=== PATIENT | female | born 1955 | race Hispanic/Latino ===

== ENCOUNTER → 2018-09-04 | Outpatient (CLI) | payer OTHER | END | disposition home or self-care (01) | LOC: SHCH 11:29 | PROVIDERS: ATTEND Internal Medicine Cardiovascular Disease | DX: I73.9 Peripheral vascular disease, unspecified (principal) | CPT/HCPCS: 93925 ==

== ENCOUNTER → 2018-09-15 | Outpatient (CLI) | payer OTHER, MEDICARE ==
[~2018-09-15] VITALS: Ht 160 cm; Wt 59.0 kg
[~2018-09-15] MED LIST: REGADENOSON 0.4 MG/5 ML PF SYG IVP SCH
== END | disposition home or self-care (01) ==
LOC: SHCH 07:54
PROVIDERS: ATTEND Internal Medicine Cardiovascular Disease
DX: I67.9 Cerebrovascular disease, unspecified (principal); I10 Essential (primary) hypertension; R07.9 Chest pain, unspecified
CPT/HCPCS: 78452; 93017; 96374; A9500 ×2; J2785

== ENCOUNTER 2019-02-26 07:32 | Observation (INO) | payer OTHER, MEDICARE ==
[2019-02-20 12:59] LABS: BASOPHILS % (AUTO) 0.6 % (0.0-5.0); EOSINOPHILS % (AUTO) 2.3 % (0.0-8.0); HEMATOCRIT 34.9 % (36-48); LYMPHOCYTES % (AUTO) 37.3 % (21.0-51.0); MEAN CORPUSCULAR HEMOGLOBIN 28.5 pg (27.0-33.0); MEAN CORPUSCULAR HGB CONC 33.5 g/dL (32.0-36.0); MEAN CORPUSCULAR VOLUME 85.1 fL (79-99); NEUTROPHILS % (AUTO) 53.5 % (40.0-77.0); PLATELET COUNT (AUTO) 241 K/uL (130-400); RED CELL DISTRIBUTION WIDTH 12.3 % (11.0-15.5); WHITE BLOOD COUNT (AUTO) 6.5 K/uL (4.8-10.8)
[2019-02-20 13:05] LABS: POTASSIUM 4.9 mmol/L (3.5-5.1)
[2019-02-20 13:07] VITALS: BP 150/80
[2019-02-20 13:10] LABS: INR 0.94 (0.85-1.15); PARTIAL THROMBOPLASTIN TIME 26.9 SEC (26.3-35.5); PROTHROMBIN TIME 9.9 SEC (9.6-11.6)
[2019-02-20 13:57] LABS: APPEARANCE,URINE CLEAR (CLEAR); BILIRUBIN,URINE NEGATIVE (NEGATIVE); COLOR,URINE YELLOW (YELLOW); GLUCOSE, URINE (UA) NEGATIVE (NEGATIVE); KETONES,URINE NEGATIVE (NEGATIVE); LEUKOCYTE ESTERASE ,URINE TRACE (NEGATIVE); NITRATE,URINE NEGATIVE (NEGATIVE); OCCULT BLOOD,URINE NEGATIVE (NEGATIVE); PH,URINE 5.5 (5.0-8.0); PROTEIN,URINE NEGATIVE (NEGATIVE); UROBILINOGEN,URINE 0.2 mg/dL (0.2-1.0)
[2019-02-20 14:06] LABS: BACTERIA,URINE Rare /HPF (None Seen); RBC,URINE 0-1 /HPF (0-1); SQUAMOUS EPITHELIAL CELL,UR Rare /HPF (0-2); WBC,URINE 0-1 /HPF (0-1)
[~2019-02-26] VITALS: Ht 160 cm; Wt 56.7 kg
[2019-02-26] VITALS (8 sets, daily range): BP systolic 102–185; BP diastolic 47–84
[~2019-02-26 07:32] MED LIST changes: +AEC81 PO; +AMLO5TAB9 PO; +ATOR40TA71 PO; +CLOP75TA32 PO; +FAMO20TA8 PO; +GABA-531 PO; +LISI10TA7 PO; +MELO-106 PO; +METF-446 PO; -REGADENOSON 0.4 MG/5 ML PF SYG IVP SCH; +SODIUM CHLORIDE 0.9% 500ML 500 ML IV SCH
[2019-02-26] MEDS ORDERED: SODIUM CHLORIDE 0.9% 1000ML 1,000 ML IV ONE (08:07)
[2019-02-26] MEDS ORDERED: LIDOCAINE HCL 2% 20ML ONE (15:37)
[2019-02-26] MEDS ORDERED: HEPARIN SODIUM 1000UNIT/ML 10ML VIAL ONE (15:37)
[2019-02-26] MEDS ORDERED: IOHEXOL 350 MG/ML 100ML INFUS..BTL IV ONE (15:37)
[2019-02-26] MEDS ORDERED: IOHEXOL-350 50ML VIAL IV ONE (15:37)
[2019-02-26] MEDS ORDERED: SODIUM BICARB 50MEQ 50ML VIAL ONE (15:37)
[2019-02-26] MEDS ORDERED: NITROGLYCERIN 5 MG/ML 10 ML VIAL IV ONE (15:47)
[2019-02-26] MEDS ORDERED: MIDAZOLAM HCL 1 MG/ML 2ML VIAL ONE (16:17)
[2019-02-26] MEDS ORDERED: MEPERIDINE-PF 25 MG/ML SYG ONE (16:18)
[2019-02-26] MEDS ORDERED: HYDRALAZINE HCL 20 MG/ML VIAL ONE ×2 (17:17→17:37)
[2019-02-26] MEDS ORDERED: ONDANSETRON HCL 4 MG/2 ML VIAL IVP PRN (17:45)
[2019-02-26] MEDS ORDERED: HYDRALAZINE HCL 20 MG/ML VIAL IM PRN (17:45)
[2019-02-26] MEDS ORDERED: SODIUM CHLORIDE 0.9% 1000ML 1,000 ML IV SCH (17:45)
[2019-02-26] MEDS ORDERED: TEMAZEPAM 30 MG CAP PO PRN (17:45)
[2019-02-26] MEDS ORDERED: NITROGLYCERIN 50 MG/D5% WATER 1 BOT IV PRN (17:45)
[2019-02-26] MEDS ORDERED: ACETAMINOPHEN-CODEINE 300/30MG TAB PO PRN ×2 (17:45)
--- NOTE | 2019-02-26 18:25 | NUR ---
RECEIVED FROM DEBUBBLIZER VIA BED ACCOMPANIED BY Sima ALVES RN. PT. AAOX3, RESP.'S EVEN AND UNLABORED. DENIES ANY C/O PAIN, DENIES ANY SOB. INSTRUCTED ON STRICT BR PER MD ORDERS, VERBALIZED UNDERSTANDING. RIGHT GROIN WITH DRSG IN PLACE, D/I; AREA SOFT, NO ECCHYMOSIS OR HEMATOMA NOTED. FEET WARM BILATERALLY, PP'S (+); DENIES ANY C/O NUMBNESS OR TINGLING. CALL LIGHT WITHIN REACH, VERBALIZED ABILITY TO USE. PT.'S FAMILY MEMBERS X2 AT BEDSIDE.
[2019-02-26] MEDS: FAMOTIDINE 20MG TAB 20 MG TAB PO SCH (20:46)
[2019-02-26] MEDS: GABAPENTIN 300 MG CAPSULE PO SCH (20:46)
[2019-02-26] MEDS ORDERED: ATORVASTATIN CALCIUM 40 MG TABLET PO SCH (21:00)
[2019-02-27 03:33] LABS: HEMATOCRIT 34.6 % (36-48); MEAN CORPUSCULAR HEMOGLOBIN 27.8 pg (27.0-33.0); MEAN CORPUSCULAR HGB CONC 32.7 g/dL (32.0-36.0); MEAN CORPUSCULAR VOLUME 85.2 fL (79-99); PLATELET COUNT (AUTO) 261 K/uL (130-400); RED BLOOD CELL COUNT(AUTO) 4.06 MIL/uL (4.00-5.50); RED CELL DISTRIBUTION WIDTH 12.8 % (11.0-15.5); WHITE BLOOD COUNT (AUTO) 5.9 K/uL (4.8-10.8)
[2019-02-27 03:51] LABS: POTASSIUM 4.2 mmol/L (3.5-5.1)
[2019-02-27 04:08] VITALS: BP_SYST 137; BP_SYST 138; BP_DIAS 76; BP_DIAS 77
[2019-02-27 08:00] VITALS: BP 138/69
[2019-02-27] MEDS ORDERED: MELOXICAM 7.5 MG TABLET PO SCH (09:00)
[2019-02-27] MEDS ORDERED: PANTOPRAZOLE SODIUM 40 MG TABLET.DR PO SCH (09:00)
[2019-02-27] MEDS ORDERED: AMLODIPINE BESYLATE 5 MG TAB PO SCH (09:00)
[2019-02-27] MEDS ORDERED: ASPIRIN 81 MG EC TAB PO SCH (09:00)
[2019-02-27] MEDS ORDERED: LISINOPRIL 10 MG TABLET PO SCH (09:00)
[2019-02-27] MEDS ORDERED: CLOPIDOGREL BISULFATE 75 MG TAB PO SCH (09:00)
[2019-02-27] MEDS: FAMOTIDINE 20MG TAB 20 MG TAB PO SCH (09:52)
[2019-02-27] MEDS: GABAPENTIN 300 MG CAPSULE PO SCH ×2 (09:53→14:44)
[2019-02-27 11:35] VITALS: BP 133/78
--- NOTE | 2019-02-27 15:09 | NUR ---
Discharged Overall Discharge instructions given,instructions given on medications, taking medications as prescribed, and follow up appointments. IV was removed with catheter intact and 4x4 dressing placed. Telepack was also removed and patient was wheeled down to private vehicle.
== END 2019-02-27 15:42 | disposition home or self-care (01) ==
LOC: DAH 07:32 → DAHIP 07:33 → 2AH 18:28
PROVIDERS: ADMIT Internal Medicine Pulmonary Disease; ATTEND Internal Medicine Pulmonary Disease
DX: I25.119 Atherosclerotic heart disease of native coronary artery with unspecified angina pectoris (principal); I11.0 Hypertensive heart disease with heart failure; I50.32 Chronic diastolic (congestive) heart failure; E78.5 Hyperlipidemia, unspecified; E11.9 Type 2 diabetes mellitus without complications; I69.354 Hemiplegia and hemiparesis following cerebral infarction affecting left non-dominant side; Z90.710 Acquired absence of both cervix and uterus; Z79.84 Long term (current) use of oral hypoglycemic drugs; Z79.02 Long term (current) use of antithrombotics/antiplatelets; Z79.82 Long term (current) use of aspirin; Z79.899 Other long term (current) drug therapy
CPT/HCPCS: 36415 ×2; 71045; 80048 ×2; 80061; 81001; 82948 ×3; 85025; 85027; 85610; 85730; 93005 ×2; 93458; A4215; A4216; A4221; A4222; A4223 ×3; A4606; A4663; C1725; C1760; C1769; C1874 ×4; C1887; C1894; C9600 ×2; C9601; G0378 ×22; J0360 ×2; J1644 ×2; J2175; J2250; J3490 ×3; J7030; Q9965 ×2; Q9967; 99156; 99157

== ENCOUNTER → 2019-03-30 | Outpatient (CLI) | payer OTHER, MEDICARE ==
[~2019-03-30] MED LIST changes: +CILO50TA PO; +NITR0.4T50 SL; +PANT40TA25 PO; -SODIUM CHLORIDE 0.9% 500ML 500 ML IV SCH; +[UNRECOGNIZED DRUG - CODE] PO
== END | disposition home or self-care (01) ==
LOC: RAH 08:27
PROVIDERS: ATTEND Internal Medicine Gastroenterology
DX: R13.10 Dysphagia, unspecified (principal)
CPT/HCPCS: 74240

== ENCOUNTER 2019-04-01 05:55 | Day surgery (SDC) | payer OTHER, MEDICARE ==
[2019-03-30 10:05] LABS: BASOPHILS % (AUTO) 0.8 % (0.0-5.0); EOSINOPHILS % (AUTO) 3.9 % (0.0-8.0); HEMATOCRIT 35.6 % (36-48); MEAN CORPUSCULAR HEMOGLOBIN 28.1 pg (27.0-33.0); MEAN CORPUSCULAR HGB CONC 32.9 g/dL (32.0-36.0); MEAN CORPUSCULAR VOLUME 85.6 fL (79-99); MONOCYTES % (AUTO) 7.3 % (3.0-13.0); NEUTROPHILS % (AUTO) 52.7 % (40.0-77.0); PLATELET COUNT (AUTO) 244 K/uL (130-400); RED BLOOD CELL COUNT(AUTO) 4.16 MIL/uL (4.00-5.50); RED CELL DISTRIBUTION WIDTH 12.5 % (11.0-15.5); WHITE BLOOD COUNT (AUTO) 6.3 K/uL (4.8-10.8)
[2019-03-30 10:11] LABS: APPEARANCE,URINE Clear (CLEAR); BILIRUBIN,URINE Negative (NEGATIVE); COLOR,URINE Yellow (YELLOW); GLUCOSE, URINE (UA) Negative (NEGATIVE); KETONES,URINE Negative (NEGATIVE); LEUKOCYTE ESTERASE ,URINE Moderate (NEGATIVE); NITRATE,URINE Negative (NEGATIVE); OCCULT BLOOD,URINE Negative (NEGATIVE); PROTEIN,URINE POS 1+ mg/dL (NEGATIVE); UROBILINOGEN,URINE 0.2 mg/dL (0.2-1.0)
[2019-03-30 10:16] LABS: BACTERIA,URINE Rare /HPF (None Seen); SQUAMOUS EPITHELIAL CELL,UR Rare /HPF (0-2); WBC,URINE 0-1 /HPF (0-1)
[2019-03-30 10:18] LABS: INR 0.95 (0.85-1.15); PARTIAL THROMBOPLASTIN TIME 26.4 SEC (26.3-35.5); POTASSIUM 4.7 mmol/L (3.5-5.1)
[2019-03-30 10:32] VITALS: BP 162/64
[~2019-04-01] VITALS: Ht 157.5 cm; Wt 56.0 kg
[2019-04-01] VITALS (14 sets, daily range): BP systolic 114–140; BP diastolic 38–70
[~2019-04-01 05:55] MED LIST changes: -MELO-106 PO
[2019-04-01] MEDS ORDERED: SODIUM CHLORIDE 0.9% 1000ML 1,000 ML IV ONE (06:05)
--- NOTE | 2019-04-01 06:05 | NUR ---
PROCEDURE PT HERE FOR PROCEDURE. DENIES ANY PAIN, SOB. SON AT BEDSIDE.
--- NOTE | 2019-04-01 09:20 | NUR ---
PROCEDURE PT TAKEN TO PROCEDURE VIA TIMEKEEPER SUPERVISOR STAFF.
[2019-04-01] MEDS ORDERED: LIDOCAINE HCL 2% 20ML ONE (09:40)
[2019-04-01] MEDS ORDERED: NITROGLYCERIN 1 MG/VIAL VIAL IV ONE (09:40)
[2019-04-01] MEDS ORDERED: MEPERIDINE-PF 25 MG/ML SYG ONE ×2 (09:40→10:24)
[2019-04-01] MEDS ORDERED: HEPARIN SODIUM 1000UNIT/ML 10ML VIAL ONE ×2 (09:40→09:54)
[2019-04-01] MEDS ORDERED: IOHEXOL 350 MG/ML 100ML INFUS..BTL IV ONE (09:40)
[2019-04-01] MEDS ORDERED: MIDAZOLAM HCL 1 MG/ML 2ML VIAL ONE ×2 (09:40→10:24)
[2019-04-01] MEDS ORDERED: SODIUM BICARB 50MEQ 50ML VIAL ONE (09:40)
[2019-04-01] MEDS ORDERED: NICARDIPINE HCL 25 MG/10 ML ML IV ONE (09:48)
[2019-04-01] MEDS ORDERED: DEXTROSE 50%-WATER 50 ML DISP.SYRIN IV ONE (10:08)
[2019-04-01] MEDS ORDERED: ACETAMINOPHEN-CODEINE 300/30MG TAB PO PRN (11:30)
[2019-04-01] MEDS ORDERED: ONDANSETRON HCL 4 MG/2 ML VIAL IVP PRN (11:30)
[2019-04-01] MEDS ORDERED: DEXTROSE 50%-WATER 50 ML DISP.SYRIN IV PRN (11:30)
[2019-04-01] MEDS ORDERED: SODIUM CHLORIDE 0.9% 1000ML 1,000 ML IV SCH (11:30)
[2019-04-01] MEDS ORDERED: INSULIN HUMULIN R 100 UNIT/ML 3ML SQ SCH (11:30)
[2019-04-01] MEDS ORDERED: GLUCAGON 1MG KIT 1 MG ML IM PRN (11:30)
--- NOTE | 2019-04-01 11:45 | NUR ---
PROCEDURE PT HERE FROM PROCEDURE. TBAND IN PLACE TO RIGHT HAND. NO SWELLING, OOZING NOTED TO RIGHT WRIST. INSTRUCTED ON IMPORTANCE OF KEEPING RIGHT ARM STRAIGHT AND IN PLACE. VERBALIZED UNDERSTANDING.
--- NOTE | 2019-04-01 14:15 | NUR ---
REPORT REPORT GIVEN TO KALE BRISCOE. PT LYING IN BED. NO BLEEDING, OOZING NOTED TO SITE.
== END 2019-04-01 19:08 | disposition home or self-care (01) ==
LOC: DAH 05:55
PROVIDERS: ATTEND Internal Medicine Cardiovascular Disease
DX: I25.118 Atherosclerotic heart disease of native coronary artery with other forms of angina pectoris (principal); I10 Essential (primary) hypertension; E78.5 Hyperlipidemia, unspecified; E11.9 Type 2 diabetes mellitus without complications; Z79.82 Long term (current) use of aspirin; Z79.899 Other long term (current) drug therapy; Z90.710 Acquired absence of both cervix and uterus; Z79.01 Long term (current) use of anticoagulants; Z83.3 Family history of diabetes mellitus; Z82.49 Family history of ischemic heart disease and other diseases of the circulatory system
CPT/HCPCS: 36415; 71045; 80048; 81001; 82948; 85025; 85610; 85730; 93005; 93454; 99156; 99157; A4606; C1725; C1769; C1894; C9600; J1644; J2175; J2250; J3490; J7030; J7070; Q9967

== ENCOUNTER 2019-08-08 16:19 | Emergency (ER) | payer OTHER, MEDICARE ==
[~2019-08-08 16:19] MED LIST changes: +AMLO-257 PO; -AMLO5TAB9 PO; -METF-446 PO; -PANT40TA25 PO; +PANT40TA54 PO
[2019-08-08 17:45] LABS: BASOPHILS % (AUTO) 0.3 % (0.0-5.0); EOSINOPHILS % (AUTO) 1.7 % (0.0-8.0); HEMATOCRIT 29.3 % (36-48); LYMPHOCYTES % (AUTO) 33.4 % (21.0-51.0); MEAN CORPUSCULAR HEMOGLOBIN 27.9 pg (27.0-33.0); MEAN CORPUSCULAR HGB CONC 33.1 g/dL (32.0-36.0); MEAN CORPUSCULAR VOLUME 84.2 fL (79-99); MONOCYTES % (AUTO) 7.5 % (3.0-13.0); NEUTROPHILS % (AUTO) 56.6 % (40.0-77.0); PLATELET COUNT (AUTO) 287 K/uL (130-400); RED BLOOD CELL COUNT(AUTO) 3.48 MIL/uL (4.00-5.50); RED CELL DISTRIBUTION WIDTH 11.9 % (11.0-15.5)
[2019-08-08 18:00] LABS: INR 0.91 (0.85-1.15); PARTIAL THROMBOPLASTIN TIME 31.2 SEC (26.3-35.5); PROTHROMBIN TIME 9.9 SEC (9.6-11.6)
[2019-08-08 18:09] LABS: CREATININE 0.8 mg/dL (0.5-1.5); POTASSIUM 3.9 mmol/L (3.5-5.1)
[2019-08-08] MEDS ORDERED: HYDROCODONE/ACETAMINOPHEN 5/325 MG TAB ONE (18:54)
== END 2019-08-08 19:04 | disposition home or self-care (01) ==
LOC: EDH 16:19
DX: M79.601 Pain in right arm (principal); M79.604 Pain in right leg; M79.89 Other specified soft tissue disorders; I10 Essential (primary) hypertension; I25.10 Atherosclerotic heart disease of native coronary artery without angina pectoris; E11.9 Type 2 diabetes mellitus without complications; E78.00 Pure hypercholesterolemia, unspecified; Z86.73 Personal history of transient ischemic attack (TIA), and cerebral infarction without residual deficits; Z88.8 Allergy status to other drugs, medicaments and biological substances; Z98.890 Other specified postprocedural states
CPT/HCPCS: 36415; 80048; 85025; 85610; 85730; 93971

== ENCOUNTER → 2019-08-27 | Outpatient (CLI) | payer OTHER, MEDICARE | END | disposition home or self-care (01) | LOC: SHCH 08:07 | PROVIDERS: ATTEND Internal Medicine Cardiovascular Disease | DX: I73.89 Other specified peripheral vascular diseases (principal); R60.9 Edema, unspecified ==

== ENCOUNTER → 2019-10-07 | Outpatient (CLI) | payer OTHER, MEDICARE ==
[~2019-10-07] MED LIST changes: -AMLO-257 PO; +AMLO5TAB9 PO; +PANT40TA25 PO; -PANT40TA54 PO
== END | disposition home or self-care (01) ==
LOC: SHCH 11:21
PROVIDERS: ATTEND Internal Medicine Cardiovascular Disease
DX: I10 Essential (primary) hypertension (principal); R06.00 Dyspnea, unspecified
CPT/HCPCS: 93306; 93356

== ENCOUNTER → 2019-10-12 | Outpatient (CLI) | payer OTHER, MEDICARE ==
[~2019-10-12] MED LIST changes: -PANT40TA25 PO; +PANT40TA54 PO; +REGADENOSON 0.4 MG/5 ML PF SYG IVP SCH
== END | disposition home or self-care (01) ==
LOC: SHCH 07:45
PROVIDERS: ATTEND Internal Medicine Cardiovascular Disease
DX: I10 Essential (primary) hypertension (principal); R06.00 Dyspnea, unspecified; I25.10 Atherosclerotic heart disease of native coronary artery without angina pectoris
CPT/HCPCS: 78452; 93017; 96374; A9500 ×2; J2785

== ENCOUNTER → 2019-11-09 | Outpatient (CLI) | payer OTHER, MEDICARE ==
[~2019-11-09] MED LIST changes: -REGADENOSON 0.4 MG/5 ML PF SYG IVP SCH
== END | disposition home or self-care (01) ==
LOC: SHCH 10:20
PROVIDERS: ATTEND Internal Medicine Cardiovascular Disease
DX: R60.9 Edema, unspecified (principal)
CPT/HCPCS: 93930; 93970

== ENCOUNTER 2020-03-08 05:56 | Day surgery (SDC) | payer OTHER, MEDICARE ==
[2020-03-03 10:05] LABS: BASOPHILS % (AUTO) 0.5 % (0.0-5.0); EOSINOPHILS % (AUTO) 2.4 % (0.0-8.0); HEMATOCRIT 35.1 % (36-48); LYMPHOCYTES % (AUTO) 35.9 % (21.0-51.0); MEAN CORPUSCULAR HEMOGLOBIN 28.5 pg (27.0-33.0); MEAN CORPUSCULAR VOLUME 86.2 fL (79-99); MONOCYTES % (AUTO) 6.9 % (3.0-13.0); NEUTROPHILS % (AUTO) 54.1 % (40.0-77.0); PLATELET COUNT (AUTO) 239 K/uL (130-400); RED BLOOD CELL COUNT(AUTO) 4.07 MIL/uL (4.00-5.50); RED CELL DISTRIBUTION WIDTH 12.9 % (11.0-15.5); WHITE BLOOD COUNT (AUTO) 6.3 K/uL (4.8-10.8)
[2020-03-03 10:17] LABS: CREATININE 0.8 mg/dL (0.5-1.5); POTASSIUM 4.4 mmol/L (3.5-5.1)
[2020-03-07 08:42] VITALS: BP_SYST 158; BP_SYST 177; BP_DIAS 68; BP_DIAS 85
[2020-03-08] VITALS (12 sets, daily range): BP systolic 146–158; BP diastolic 60–77
[~2020-03-08] VITALS: Ht 160 cm; Wt 51.8 kg
[~2020-03-08 05:56] MED LIST changes: +AMLO-257 PO; -AMLO5TAB9 PO; +CEFAZOLIN SODIUM 1 GM VIAL IVP SCH
[2020-03-08] MEDS ORDERED: SODIUM CHLORIDE 0.9% 1000ML 1,000 ML IV ONE (06:06)
[2020-03-08] MEDS ORDERED: LIDOCAINE HCL-MPF 0.5% 50ML VIAL IJ ONE (06:56)
[2020-03-08] MEDS ORDERED: FENTANYL CITRATE PF 50 MCG/1 ML 2ML VIAL ONE (06:58)
[2020-03-08] MEDS ORDERED: MIDAZOLAM HCL 1 MG/ML 2ML VIAL ONE (06:58)
[2020-03-08] MEDS ORDERED: METF-446 PO (07:04)
[2020-03-08] MEDS ORDERED: MELO-106 PO (07:05)
== END 2020-03-08 09:30 ==
LOC: DAH 05:56
PROVIDERS: ATTEND Neurological Surgery
DX: G56.01 Carpal tunnel syndrome, right upper limb (principal); I25.10 Atherosclerotic heart disease of native coronary artery without angina pectoris; E11.9 Type 2 diabetes mellitus without complications; Z79.01 Long term (current) use of anticoagulants; Z95.5 Presence of coronary angioplasty implant and graft; Z20.828 Contact with and (suspected) exposure to other viral communicable diseases; Z79.899 Other long term (current) drug therapy
CPT/HCPCS: 36415; 64721; 80048; 82948; 85025; 93005; A4215; A4216; A4221; A4222; A4223; A4606; A4663; A6260; C9803; J0690; J2250; J3010; J3490; J7030; U0003

== ENCOUNTER → 2021-02-02 | Outpatient (CLI) | payer OTHER, MEDICARE ==
[~2021-02-02] MED LIST changes: -AEC81 PO; -AMLO-257 PO; -CEFAZOLIN SODIUM 1 GM VIAL IVP SCH; -CLOP75TA32 PO; -FAMO20TA8 PO; +LISI10TA24 PO; -LISI10TA7 PO; +MELO-106 PO; +METF-446 PO; -PANT40TA54 PO; -[UNRECOGNIZED DRUG - CODE] PO
== END | disposition home or self-care (01) ==
LOC: SHCH 09:48
PROVIDERS: ATTEND Internal Medicine Cardiovascular Disease
DX: I35.8 Other nonrheumatic aortic valve disorders (principal); I65.23 Occlusion and stenosis of bilateral carotid arteries; I70.293 Other atherosclerosis of native arteries of extremities, bilateral legs; I11.9 Hypertensive heart disease without heart failure; E11.9 Type 2 diabetes mellitus without complications; E78.5 Hyperlipidemia, unspecified
CPT/HCPCS: 93306; 93356; 93880; 93925

== ENCOUNTER → 2021-02-07 | Outpatient (CLI) | payer OTHER, MEDICARE ==
[~2021-02-07] VITALS: Ht 160 cm; Wt 55.8 kg
[~2021-02-07] MED LIST changes: +REGADENOSON 0.4 MG/5 ML PF SYG IVP SCH
== END | disposition home or self-care (01) ==
LOC: SHCH 08:16
PROVIDERS: ATTEND Internal Medicine Cardiovascular Disease
DX: I10 Essential (primary) hypertension (principal); R01.1 Cardiac murmur, unspecified; I25.10 Atherosclerotic heart disease of native coronary artery without angina pectoris; Z95.5 Presence of coronary angioplasty implant and graft
CPT/HCPCS: 78452; 93017; 96374; A9500 ×2; J2785

== ENCOUNTER → 2021-11-02 | Outpatient (CLI) | payer OTHER, MEDICARE ==
[~2021-11-02] MED LIST changes: -REGADENOSON 0.4 MG/5 ML PF SYG IVP SCH
== END | disposition home or self-care (01) ==
LOC: SHCH 11:33
PROVIDERS: ATTEND Internal Medicine Cardiovascular Disease
DX: I70.293 Other atherosclerosis of native arteries of extremities, bilateral legs (principal)
CPT/HCPCS: 93925

== ENCOUNTER → 2022-08-29 | Outpatient (CLI) | payer OTHER, MEDICARE ==
[~2022-08-29] MED LIST changes: -CILO50TA PO; +CILO50TA2 PO
== END | disposition home or self-care (01) ==
LOC: SHCH 08:03
PROVIDERS: ATTEND Internal Medicine Cardiovascular Disease
DX: I65.23 Occlusion and stenosis of bilateral carotid arteries (principal); I25.119 Atherosclerotic heart disease of native coronary artery with unspecified angina pectoris
CPT/HCPCS: 93880

== ENCOUNTER → 2023-09-06 | Outpatient (CLI) | payer OTHER, MEDICARE ==
[2023-09-06] MEDS: REGADENOSON 0.4 MG/5 ML PF SYG IVP ONE (11:45)
== END | disposition home or self-care (01) ==
LOC: SHCH 08:27
PROVIDERS: ATTEND Internal Medicine Cardiovascular Disease
DX: I25.10 Atherosclerotic heart disease of native coronary artery without angina pectoris (principal); R07.9 Chest pain, unspecified
CPT/HCPCS: 78452; 93017; J2785; A9500 ×2; 96374

== ENCOUNTER 2023-11-13 07:31 | Day surgery (SDC) | payer OTHER, MEDICARE ==
[2023-11-11 10:50] LABS: BASOPHILS # (AUTO) 0.02 K/uL (0.00-0.20); BASOPHILS % (AUTO) 0.4 % (0.0-5.0); EOSINOPHILS # (AUTO) 0.17 K/uL (0.00-0.70); EOSINOPHILS % (AUTO) 3.5 % (0.0-8.0); HEMATOCRIT 32.7 % (36-48); IMMATURE GRANULOCYTE ABSOLUTE 0.01 K/uL (0-1); LYMPHOCYTES # (AUTO) 1.4 K/uL (1.0-4.8); LYMPHOCYTES % (AUTO) 29.9 % (21.0-51.0); MEAN CORPUSCULAR HEMOGLOBIN 28.6 pg (27.0-33.0); MEAN CORPUSCULAR HGB CONC 32.7 g/dL (32.0-36.0); MEAN CORPUSCULAR VOLUME 87.4 fL (79-99); MONOCYTES # (AUTO) 0.4 K/uL (0.1-1.0); MONOCYTES % (AUTO) 7.5 % (3.0-13.0); NEUTROPHILS # (AUTO) 2.8 K/uL (1.8-7.7); NEUTROPHILS % (AUTO) 58.5 % (40.0-77.0); PLATELET COUNT (AUTO) 236 K/uL (130-400); RED BLOOD CELL COUNT(AUTO) 3.74 MIL/uL (4.00-5.50); RED CELL DISTRIBUTION WIDTH 13.2 % (11.0-15.5); WHITE BLOOD COUNT (AUTO) 4.8 K/uL (4.8-10.8)
[2023-11-11 10:59] VITALS: BP 140/56; PULSE 65; RESP 18; TEMP 97.5
[2023-11-11 11:00] LABS: INR 0.96 (0.85-1.15); PROTHROMBIN TIME 10.4 SEC (9.6-11.6)
[2023-11-11 11:01] LABS: PARTIAL THROMBOPLASTIN TIME 25.6 SEC (26.3-35.5)
[2023-11-11 11:03] LABS: CREATININE 1.1 mg/dL (0.5-1.0); POTASSIUM 4.7 mmol/L (3.5-5.1)
[2023-11-11 11:08] LABS: B-TYPE NATRIURETIC PEPTIDE 314 pg/mL (0-100)
[2023-11-11 11:17] LABS: ADD UA MICROSCOPIC YES; APPEARANCE,URINE CLEAR (CLEAR); BILIRUBIN,URINE NEGATIVE (NEGATIVE); COLOR,URINE LIGHT-YELLOW (YELLOW); GLUCOSE, URINE (UA) >=1000 mg/dL (NEGATIVE); KETONES,URINE NEGATIVE (NEGATIVE); LEUKOCYTE ESTERASE ,URINE NEGATIVE Leu/uL (NEGATIVE); NITRATE,URINE NEGATIVE (NEGATIVE); OCCULT BLOOD,URINE NEGATIVE (NEGATIVE); PH,URINE 6.5 (5.0-8.0); PROTEIN,URINE NEGATIVE (NEGATIVE); UROBILINOGEN,URINE 0.2 mg/dL (0.2-1.0)
[2023-11-11 11:22] LABS: RBC,URINE 0-1 /HPF (0-1); SQUAMOUS EPITHELIAL CELL,UR RARE /HPF (0-2); WBC,URINE 0-1 /HPF (0-1)
[2023-11-13] VITALS (11 sets, daily range): BP systolic 125–166; BP diastolic 48–85; PULSE 52–62; RESP 9–18; TEMP 97.5–97.9
[~2023-11-13] VITALS: Ht 160 cm; Wt 58.1 kg
[~2023-11-13 07:31] MED LIST changes: +AEC81 PO; +ATOR-2 PO; -ATOR40TA71 PO; -CILO50TA2 PO; +CLOP75TA32 PO; +LEVO50CA4 PO; -LISI10TA24 PO; +LISI20TA24 PO; +METO25TA6 PO
[2023-11-13] MEDS: 0.9%NACL 1000ML 1,000 ML IV ONE (08:26)
[2023-11-13] MEDS ORDERED: LIDOCAINE HCL 400MG/20ML VIAL ONE (08:48)
[2023-11-13] MEDS ORDERED: HEParin-NS 1,000 UNIT/500 ML 1,000 ML IV ONE (08:49)
[2023-11-13] MEDS ORDERED: niCARDIpine 25MG INJ IV ONE (08:49)
[2023-11-13] MEDS ORDERED: IOHEXOL 350 MG/ML 100ML INFUS..BTL IV ONE (08:49)
[2023-11-13] MEDS ORDERED: NITROGLYCERIN 50MG VIAL ONE (08:49)
[2023-11-13] MEDS ORDERED: HEParin 10,000 UNIT/10ML (1,000 UNIT/ML) VIAL ONE (08:49)
[2023-11-13] MEDS ORDERED: MIDAZOLAM HCL 1 MG/ML 2ML VIAL ONE ×2 (09:06→10:16)
[2023-11-13] MEDS ORDERED: MEPERIDINE-PF 25 MG/ML SYG ONE ×2 (09:06→10:15)
[2023-11-13] MEDS ORDERED: ATROPINE 1MG SYG IVP ONE (09:44)
[2023-11-13] MEDS ORDERED: DEXTROSE 50%-WATER 50 ML DISP.SYRIN IV PRN (11:00)
[2023-11-13] MEDS ORDERED: GLUCAGON 1MG KIT 1 MG ML IM PRN (11:00)
[2023-11-13] MEDS: INSULIN humuLIN R 100 UNIT/ML 3ML SQ SCH (11:20)
[2023-11-13] MEDS: 0.9%NACL 1000ML 1,000 ML IV SCH (11:23)
== END 2023-11-13 14:50 | disposition home or self-care (01) ==
LOC: DAH 07:31
PROVIDERS: ATTEND Internal Medicine Cardiovascular Disease
DX: I25.118 Atherosclerotic heart disease of native coronary artery with other forms of angina pectoris (principal); T82.855A Stenosis of coronary artery stent, initial encounter; I10 Essential (primary) hypertension; E11.9 Type 2 diabetes mellitus without complications; E78.5 Hyperlipidemia, unspecified; G81.94 Hemiplegia, unspecified affecting left nondominant side; Z79.84 Long term (current) use of oral hypoglycemic drugs; Z86.73 Personal history of transient ischemic attack (TIA), and cerebral infarction without residual deficits; Y82.8 Other medical devices associated with adverse incidents; Z79.01 Long term (current) use of anticoagulants; Z90.710 Acquired absence of both cervix and uterus; Z79.82 Long term (current) use of aspirin; Z79.899 Other long term (current) drug therapy
CPT/HCPCS: 80048; 83880; 85025; 85610; 85730; 81001; 36415; 71045; 93005; 93458; 82948 ×2; C9600 ×2; J1815; C1769 ×3; C1887 ×3; C1874 ×3; A4649; C1894; C1725 ×2; J3490 ×3; J7030; J1644 ×2; J2250 ×2; J2175 ×2; Q9967; A4215; A4222; A6260; A4221; A4663; A4216; A6206; A4606; Q9965 ×2; A4223 ×3; 96360; 96361; 99156; 99157; J0461

== ENCOUNTER 2023-12-13 08:00 | Day surgery (SDC) | payer OTHER, MEDICARE ==
[2023-12-11 11:34] LABS: BASOPHILS # (AUTO) 0.02 K/uL (0.00-0.20); BASOPHILS % (AUTO) 0.5 % (0.0-5.0); EOSINOPHILS # (AUTO) 0.19 K/uL (0.00-0.70); EOSINOPHILS % (AUTO) 4.4 % (0.0-8.0); HEMATOCRIT 31.4 % (36-48); IMMATURE GRANULOCYTE ABSOLUTE 0.02 K/uL (0-1); LYMPHOCYTES # (AUTO) 1.7 K/uL (1.0-4.8); LYMPHOCYTES % (AUTO) 38.3 % (21.0-51.0); MEAN CORPUSCULAR HEMOGLOBIN 29.1 pg (27.0-33.0); MEAN CORPUSCULAR HGB CONC 32.8 g/dL (32.0-36.0); MEAN CORPUSCULAR VOLUME 88.7 fL (79-99); MONOCYTES # (AUTO) 0.2 K/uL (0.1-1.0); MONOCYTES % (AUTO) 5.6 % (3.0-13.0); NEUTROPHILS # (AUTO) 2.2 K/uL (1.8-7.7); NEUTROPHILS % (AUTO) 50.7 % (40.0-77.0); PLATELET COUNT (AUTO) 225 K/uL (130-400); RED BLOOD CELL COUNT(AUTO) 3.54 MIL/uL (4.00-5.50); RED CELL DISTRIBUTION WIDTH 13.3 % (11.0-15.5); WHITE BLOOD COUNT (AUTO) 4.3 K/uL (4.8-10.8)
[2023-12-11 11:38] LABS: CREATININE 0.9 mg/dL (0.5-1.0); POTASSIUM 4.7 mmol/L (3.5-5.1)
[2023-12-11 11:39] LABS: INR 0.98 (0.85-1.15); PROTHROMBIN TIME 10.6 SEC (9.6-11.6)
[2023-12-11 11:40] LABS: APPEARANCE,URINE CLEAR (CLEAR); BILIRUBIN,URINE NEGATIVE (NEGATIVE); COLOR,URINE LIGHT-YELLOW (YELLOW); GLUCOSE, URINE (UA) >=1000 mg/dL (NEGATIVE); KETONES,URINE NEGATIVE (NEGATIVE); LEUKOCYTE ESTERASE ,URINE 250 Leu/uL (NEGATIVE); NITRATE,URINE NEGATIVE (NEGATIVE); OCCULT BLOOD,URINE NEGATIVE (NEGATIVE); PH,URINE 5.5 (5.0-8.0); PROTEIN,URINE NEGATIVE (NEGATIVE); UROBILINOGEN,URINE 0.2 mg/dL (0.2-1.0)
[2023-12-11 11:41] LABS: ADD UA MICROSCOPIC YES; PARTIAL THROMBOPLASTIN TIME 25.2 SEC (26.3-35.5)
[2023-12-11 11:44] LABS: SQUAMOUS EPITHELIAL CELL,UR RARE /HPF (0-2)
[2023-12-11 11:47] VITALS: BP 203/82; PULSE 62; RESP 16; TEMP 97.9
[2023-12-11 11:54] LABS: B-TYPE NATRIURETIC PEPTIDE 321 pg/mL (0-100)
[2023-12-13] VITALS (11 sets, daily range): BP systolic 120–175; BP diastolic 55–80; PULSE 60–70; RESP 14–18; TEMP 97–98.1
[~2023-12-13] VITALS: Ht 160 cm; Wt 57.3 kg
[~2023-12-13 08:00] MED LIST changes: -LEVO50CA4 PO
[2023-12-13] MEDS: 0.9%NACL 1000ML 1,000 ML IV ONE (09:54)
[2023-12-13] MEDS ORDERED: IOHEXOL 350 MG/ML 100ML INFUS..BTL IV ONE (10:49)
[2023-12-13] MEDS ORDERED: HEParin-NS 1,000 UNIT/500 ML 1,000 ML IV ONE (10:49)
[2023-12-13] MEDS ORDERED: HEParin 10,000 UNIT/10ML (1,000 UNIT/ML) VIAL ONE ×2 (10:49→11:54)
[2023-12-13] MEDS ORDERED: LIDOCAINE HCL 400MG/20ML VIAL ONE (10:49)
[2023-12-13] MEDS ORDERED: NITROGLYCERIN 50MG VIAL ONE (10:50)
[2023-12-13] MEDS ORDERED: niCARDIpine 25MG INJ IV ONE (11:17)
[2023-12-13] MEDS ORDERED: MEPERIDINE-PF 25 MG/ML SYG ONE ×2 (11:17→12:46)
[2023-12-13] MEDS ORDERED: MIDAZOLAM HCL 1 MG/ML 2ML VIAL ONE ×2 (11:17→12:47)
[2023-12-13] MEDS ORDERED: 0.9%NACL 1000ML 1,000 ML IV SCH (13:30)
[2023-12-13] MEDS ORDERED: GLUCAGON 1MG KIT 1 MG ML IM PRN (13:30)
[2023-12-13] MEDS ORDERED: DEXTROSE 50%-WATER 50 ML DISP.SYRIN IV PRN (13:30)
[2023-12-13] MEDS: acetaMINOPHEN 325 MG TAB ONE (15:51)
[2023-12-13] MEDS ORDERED: INSULIN humuLIN R 100 UNIT/ML 3ML SQ SCH (16:30)
== END 2023-12-13 19:10 | disposition home or self-care (01) ==
LOC: DAH 08:00
PROVIDERS: ATTEND Internal Medicine Cardiovascular Disease
DX: I25.118 Atherosclerotic heart disease of native coronary artery with other forms of angina pectoris (principal); R94.39 Abnormal result of other cardiovascular function study; I10 Essential (primary) hypertension; E78.5 Hyperlipidemia, unspecified; Z86.73 Personal history of transient ischemic attack (TIA), and cerebral infarction without residual deficits; E11.9 Type 2 diabetes mellitus without complications; Z90.710 Acquired absence of both cervix and uterus; Z95.5 Presence of coronary angioplasty implant and graft; Z79.01 Long term (current) use of anticoagulants; Z79.84 Long term (current) use of oral hypoglycemic drugs; Z79.82 Long term (current) use of aspirin; Z79.899 Other long term (current) drug therapy
CPT/HCPCS: 80048; 83880; 85025; 85610; 85730; 87086; 81001; 36415 ×2; 71045; 93005; 85347 ×2; 82948 ×3; C9600; Q9965; C1769 ×3; C1894 ×2; C1725 ×3; C1874 ×4; C1887 ×3; C1760; J3490 ×3; J7030; J1644 ×2; J2250 ×2; J2175 ×2; Q9967; A4215; A4222; A4221; A4663; A4216; A4606; C9601; A4223 ×3; 99156; 99157

== ENCOUNTER → 2024-04-02 | Outpatient (CLI) | payer OTHER, MEDICARE ==
[2024-04-02 16:17] LABS: BASOPHILS # (AUTO) 0.03 K/uL (0.00-0.20); BASOPHILS % (AUTO) 0.5 % (0.0-5.0); EOSINOPHILS # (AUTO) 0.12 K/uL (0.00-0.70); EOSINOPHILS % (AUTO) 1.9 % (0.0-8.0); HEMATOCRIT 33.9 % (36-48); IMMATURE GRANULOCYTE ABSOLUTE 0.02 K/uL (0-1); LYMPHOCYTES # (AUTO) 2.4 K/uL (1.0-4.8); LYMPHOCYTES % (AUTO) 37.4 % (21.0-51.0); MEAN CORPUSCULAR HEMOGLOBIN 28.5 pg (27.0-33.0); MEAN CORPUSCULAR HGB CONC 32.4 g/dL (32.0-36.0); MEAN CORPUSCULAR VOLUME 87.8 fL (79-99); MONOCYTES # (AUTO) 0.4 K/uL (0.1-1.0); MONOCYTES % (AUTO) 5.9 % (3.0-13.0); NEUTROPHILS # (AUTO) 3.5 K/uL (1.8-7.7); PLATELET COUNT (AUTO) 259 K/uL (130-400); RED BLOOD CELL COUNT(AUTO) 3.86 MIL/uL (4.00-5.50); RED CELL DISTRIBUTION WIDTH 12.4 % (11.0-15.5); WHITE BLOOD COUNT (AUTO) 6.4 K/uL (4.8-10.8)
[2024-04-02 16:25] LABS: HEMOGLOBIN A1C 7.1 % (4.0-6.0)
[2024-04-02 16:40] LABS: ALBUMIN 4.2 g/dL (3.5-5.0); BILIRUBIN,TOTAL 0.4 mg/dL (0.2-1.0); CREATININE 0.9 mg/dL (0.5-1.0); POTASSIUM 5.4 mmol/L (3.5-5.1); TOTAL PROTEIN, SERUM 7.2 g/dL (6.0-8.3)
== END | disposition home or self-care (01) ==
LOC: LAB 13:32
PROVIDERS: ATTEND Internal Medicine Cardiovascular Disease
DX: I10 Essential (primary) hypertension (principal); E11.9 Type 2 diabetes mellitus without complications; Z79.899 Other long term (current) drug therapy
CPT/HCPCS: 36415; 80053; 83036; 83880; 85025

== ENCOUNTER 2024-12-11 06:03 | Observation (INO) | payer OTHER, MEDICARE ==
[2024-12-09 09:51] VITALS: BP 175/77; PULSE 57; RESP 14; TEMP 97.2
[2024-12-09 09:53] VITALS: BP 165/76
--- NOTE | 2024-12-09 09:57 | EKG ---
[facility] Test Date: 2024-12-09 Test Time: 09:39:14 Pat Name: JOVANNI MANN Department: [facility] Room: Gender: F It Security Project Manager: [id number] : 1955 Requested By: Raymundo ANDERSON Order Number: [id number] Reading MD: Juana Nelson Measurements Intervals Ephraim Rate: 56 P: -31 ND: 158 QRS: 37 QRSD: 90 T: 77 QT: 422 QTc: 406 Interpretive Statements Sinus rhythm Compared to ECG 07/28/2024 17:24:09 No significant changes Electronically Signed On 12-09-2024 10:11:33 CDT by Juana Nelson Please click the below link to view image of tracing.
[2024-12-09 10:00] LABS: APPEARANCE,URINE CLEAR (CLEAR); GLUCOSE, URINE (UA) NEGATIVE (NEGATIVE); LEUKOCYTE ESTERASE ,URINE 25 Leu/uL (NEGATIVE); NITRATE,URINE NEGATIVE (NEGATIVE); OCCULT BLOOD,URINE NEGATIVE (NEGATIVE)
[2024-12-09 10:01] LABS: IMMATURE GRANULOCYTE ABSOLUTE 0.01 K/uL (0-1); NUCLEATED RED BLOOD CELLS 0.0 % (0.0-0.19); PLATELET COUNT (AUTO) 225 K/uL (130-400); RED BLOOD CELL COUNT(AUTO) 3.89 MIL/uL (4.00-5.50); RED CELL DISTRIBUTION WIDTH 12.6 % (11.0-15.5); WHITE BLOOD COUNT (AUTO) 5.4 K/uL (4.8-10.8)
[2024-12-09 10:01] LABS: ADD UA MICROSCOPIC YES
[2024-12-09 10:10] LABS: INR 0.99 (0.85-1.15)
[2024-12-09 10:12] LABS: SQUAMOUS EPITHELIAL CELL,UR RARE /HPF (0-2)
[2024-12-09 10:16] LABS: CREATININE 0.8 mg/dL (0.5-1.0); GLOMERULAR FILTR. RATE CALC 80.0 mL/min (>90); GLUCOSE,RANDOM 138.0 mg/dL (70-105); SODIUM SERUM 145.0 mmol/L (136-145); UREA NITROGEN, BLOOD 25.0 mg/dL (7-18)
--- NOTE | 2024-12-09 16:22 | HMCIMG ---
EXAM: CR Chest, 1 View. CLINICAL HISTORY: Pre-operative evaluation. COMPARISON: None provided. FINDINGS: LUNGS: The lungs show no infiltrate or other acute finding. PLEURAL SPACES: No pleural effusion or pneumothorax. MEDIASTINUM: Cardiac size and mediastinal contours within normal limits. BONES: No aggressive appearing osseous lesion seen. IMPRESSION: 1. No acute cardiopulmonary findings. /Chappells
[2024-12-11] VITALS (17 sets, daily range): BP systolic 108–154; BP diastolic 40–68; PULSE 48–64; RESP 10–18; TEMP 97.3–97.6; O2SAT 100
[~2024-12-11] VITALS: Ht 160 cm; Wt 52.3 kg
[~2024-12-11 06:03] MED LIST changes: -AEC81 PO; -ATOR-2 PO; +ATOR40TA69 PO; +EZET10TA80 PO; +FERS325 PO; -GABA-531 PO; +GABA300C PO; +LISI10TA24 PO; -LISI20TA24 PO; +NIFE-40 PO; +NITR0.4T50 PO; -NITR0.4T50 SL
[2024-12-11] MEDS: 0.9%NACL 1000ML 1,000 ML IV SCH (06:49)
[2024-12-11] MEDS ORDERED: ASPI-449 PO (06:53)
[2024-12-11] MEDS ORDERED: LIDOCAINE HCL 400MG/20ML VIAL ONE (07:24)
[2024-12-11] MEDS ORDERED: IOHEXOL 350 MG/ML 100ML INFUS..BTL IV ONE (07:24)
[2024-12-11] MEDS ORDERED: SODIUM BICARB 50MEQ 50ML VIAL 50 ML ONE (07:24)
[2024-12-11] MEDS ORDERED: NITROGLYCERIN 50MG VIAL ONE (07:25)
[2024-12-11] MEDS ORDERED: HEParin-NS 1,000 UNIT/500 ML 1,000 ML IV ONE (07:25)
[2024-12-11] MEDS ORDERED: MIDAZOLAM HCL 1 MG/ML 2ML VIAL ONE ×3 (07:33→09:40)
[2024-12-11] MEDS ORDERED: ATROPINE 1MG SYG IVP ONE (08:25)
[2024-12-11] MEDS ORDERED: HEParin-NS 1,000 UNIT/500 ML 500 ML IV ONE (09:18)
[2024-12-11] MEDS ORDERED: 0.9%NACL 1000ML 1,000 ML IV SCH (10:30)
[2024-12-11] MEDS ORDERED: DEXTROSE 50%-WATER 50 ML DISP.SYRIN IV PRN (10:30)
--- NOTE | 2024-12-11 11:25 | NUR ---
urinary: voided 500cc clear yellow color urine per bedpan without difficulty.
--- NOTE | 2024-12-11 12:11 | CCATH ---
PROCEDURE NOTE PROCEDURES: * Left heart catheterization. * Selective diagnostic right and left coronary arteriogram. * Selective diagnostic right and left carotid artery angiogram. * Balloon angioplasty and stent placement in the distal RCA. * Balloon angioplasty of the mid and proximal LAD. * Balloon angioplasty with shockwave lithotripsy of the mid to distal, proximal, and ostial LAD. * IVUS of the LAD. * Conscious sedation for 120 minutes. INDICATIONS: * Known history of coronary artery disease. * Severe anginal symptoms. * Status post remote multivessel stenting. * Carotid stenosis. COMPLICATIONS: None. TOTAL CONTRAST: Approximately 110 mL. APPROACH: Right femoral. The patient was taken to the cardiac catheterization lab after the appropriate operative consents were signed. She was prepped and draped in the usual fashion. After conscious sedation was administered, the right common femoral artery lesion was infiltrated with 2% Xylocaine without epinephrine. Access was utilized with ultrasound guidance. The right common femoral artery was cannulated and a 6-Iraqi sheath was advanced in a retrograde fashion with a modified Seldinger technique. At this point, an FL4 6-Iraqi diagnostic catheter was advanced and selectively engaged in the ostium of the left main. Imaging was obtained in multiple planes. The left main was short and bifurcated in the LAD, and circumflex. The circumflex was a moderately sized vessel that basically consisted of one single branching OM. There was a stent placed from the ostium of the circumflex into the obtuse marginal branch and terminated proximal to the bifurcation of the vessel. The stent was patent with a 30% proximal in-stent restenosis. The LAD was a moderately large vessel that had multiple stents from the ostium all the way to the mid and distal segments. There was an area of overlapping stent sandwiched in the mid portion of the vessel. The first diagonal was tiny. The second diagonal was small and had a 90% ostial lesion. The LAD had extensive calcification, which appears to be underdeployed stent. The distal most portion of the stent just distal to the second diagonal had an 80% in-stent restenosis. The catheter was withdrawn and an FR4 6-Iraqi catheter was advanced and placed in the left ventricular cavity. Left ventricular end-diastolic pressure measurement was obtained. Ventriculography was deferred. The patient had preserved left ventricular systolic function by noninvasive studies. Pullback revealed no aortic stenosis. At this point, the catheter was engaged in the ostium of the right coronary artery. This was imaged in multiplane. This was a large vessel that gave us an acute marginal PDA and a branching PLVB system. The right coronary artery had stents from the ostium to distal portion just after the acute marginal branch. The stents were patent in the proximal segment; however, distally, there was evidence of an 80% in-stent restenosis and just at the distal end of the distal-most stent, there was an 80% napkin ring edge lesion. The PDA had a chronic patent stent and the PLVB system was branching, but was noted to have moderate irregularities. The catheter was withdrawn and engaged on the brachiocephalic artery and imaging was obtained identifying a patent brachiocephalic artery, patent common carotid artery, patent right subclavian, patent right vertebral. The right common carotid artery was then imaged and appeared to be patent with bifurcation of the internal and external with no significant stenotic lesions. The intracerebral circulation was normal. The catheter was then engaged in the left common carotid artery, which was imaged in multiplane. This was a moderately sized vessel that gave rise to an external carotid and an internal carotid. The ostium to proximal segment of the internal carotid had an 80% stenotic lesion. The intracerebral circulation was normal. Given the patient's symptoms and the complexity of her coronary artery disease, we elected to proceed with a percutaneous intervention once more. The first target was the right coronary artery. We utilized an FR4 guide catheter and was engaged to the ostium of the right coronary artery. A 0.014 wire was advanced and placed in the distal RCA circulation. Attempts at advancing any balloon through the proximal area of the stent on the right coronary artery were not successful. We utilized a GuideLiner. Despite that, we had poor guide support and the GuideLiner would not advance. We then utilized an inchworming technique with a 2.0 balloon and a 3.5 balloon. Finally, we were able to advance the GuideLiner to the distal portion of the vessel. We then advanced a 3.5 x 27 NC balloon, which is inflated in the area of stenosis followed by placement of an overlapping stent with a 3.5 x 23 Xience Skypoint, which was inflated to 14 atmospheres and post dilated with a 3.5 NC balloon to 18 atmospheres and 3.57 mm size. At this point, we directed our attention to the LAD. The FL 3.5 guide catheter was selected and engaged to the ostium of the left main. The 0.014 wire was advanced into position of the distal LAD. Once again, we utilized the GuideLiner for support. The distal LAD was dilated with a 2.7 x 15 NC balloon to 20 atmospheres, which still did not yield. Then we used a 3.5 x 12 shockwave and we delivered a total of 120 therapies in the distal mid, proximal LAD. This was followed by placement of a 3.5 x 27 NC balloon, which was inflated in the distal LAD, mid LAD, and proximal to ostial LAD in the area of in-stent restenosis. The IVUS had documented suboptimal deployment with underdeployment of the LAD stent. There was extensive calcification that required high pressures with an oversized balloon of 3.5 mm. The final angiographic result was good. The patient had the Perclose utilized with good hemostasis. She tolerated the procedure well and left the cardiac catheterization lab in stable condition. FINAL IMPRESSION: * Severe three-vessel coronary artery disease. * Patent stents in the right coronary artery, circumflex, obtuse marginal, and left anterior descending. * Severe in-stent restenosis in the distal right coronary artery and napkin-ring lesion distal to the most distal stent. * Severe in-stent restenosis with an underdeployed left anterior descending proximal, ostial, mid and distal stents. * Preserved left ventricular systolic function by noninvasive studies. * No aortic stenosis on pullback. * Normal right carotid system with 80% left internal carotid artery stenosis. * Successful complex procedure of the distal right coronary artery with utilization of GuideLiner to support the advancement and placement of a 3.5 x 23 Skypoint inflated to 14 atmospheres followed by 3.5 NC balloon to 18 atmospheres at 3.57 mm in size. * IVUS of the left anterior descending with balloon angioplasty of the mid distal and left anterior descending and shockwave lithotripsy of the mid distal and ostial proximal left anterior descending with 3.5 x 27 NC balloon to 16 atmospheres with good angiographic results. PLAN: Continue medical management and consider TCAR for the left carotid system. TID: [id number] RECEIPT: [id number]
--- NOTE | 2024-12-11 14:13 | NUR ---
URINARY: VOIDED 300 CC CLEAR YELLOW COLOR URINE PER BEDPAN WITHOUT DIFFICULTY.
--- NOTE | 2024-12-11 15:54 | NUR ---
RECEIVED REPORT FROM MARTIN HENLEY AT 1430, IN TO CHECK ON PT AND NOTICED RIGHT FEMORAL SITE DRESSING WAS RED. ON ASSESSMENT THE SITE WAS STILL OOZING BLOOD, SWAPPED WITH DSTAT AND 15 MIN OF MANUAL PRESSURE WAS APPLIED TO CONTROL BLEEDING, REASSESSED IN 5 MINUTES AND DRESSING WAS RED SITE WAS STILL OOZING BLOOD, NEW DSTAT APPLIED AND 15 MORE MINUTED OF MANUAL PRESSURE WAS APPLIED TO CONTROL BLEEDING, REASSESS IN ANOTHER 5 MINUTES AND DSTAT WAS AGAIN RED AND SITE IS STILL OOZING BLOOD, THIRD DSTAT APPLIED AND 20 MINUTES OF MANUAL PRESSURE APPPLIED, BLEEDING CONTROLLED AT THIS TIME. DR ANDERSON NOTIFIED OF CONDTION OF CATH SITE, ORDERS FOR ADMISSION TO MED/TELE AND ULTRASOUND OF SITE RECIEVED.
--- NOTE | 2024-12-11 16:50 | HMCIMG ---
Right groin ULTRASOUND INDICATION: Post cardiac catheter COMPARISON: None TECHNIQUE: Multiplanar sonographic images of the right groin were obtained earlier in real-time using grayscale and color Doppler technique, and subsequently made available for review. FINDINGS/IMPRESSION: Study demonstrates a complex fluid collection without flow suggesting of a hematoma measuring 2.8 x 0.4 x 3.4 cm.
[2024-12-11] MEDS ORDERED: NITROGLYCERIN 0.4 MG SL TAB SL SCH (18:30)
--- NOTE | 2024-12-11 20:36 | HP ---
[facility] HISTORY AND PHYSICAL Date of Service: Dec 11, 2024 Time of Service: 19:35 HISTORY OF PRESENT ILLNESS: Date of service: 12/11/2024, patient was seen in day patient unit room 8 69-year-old female with history of hypertension, hyperlipidemia, type 2 diabetes mellitus, remote history of CVA with residual left-sided hemiparesis, history of multivessel coronary artery disease with prior history of PTCA/stenting who is status post cardiac catheterization/coronary angiogram. Patient is followed by Dr. Anderson as outpatient. Previously, she was having symptoms of chest discomfort with exertion as well as with rest. She would get progressive fatigue and dyspnea on exertion two episodes of angina. Patient underwent cardiac catheterization today which showed severe three-vessel coronary artery disease with patent stents in the right coronary artery, circumflex, obtuse marginal and left anterior descending. Patient was found to have severe in stent restenosis in the distal RCA and napkin ring lesion distal to the most distal stent. She was found to have severe in stent restenosis due to an under deployed left anterior descending proximal, ostial, mid and distal stents. Patient underwent successful complex procedure of the distal RCA with angioplasty and stenting done. Patient underwent IVUS of the left anterior descending with balloon angioplasty of the mid distal and left anterior descending with shockwave lithotripsy of the mid distal and ostial proximal LAD. Patient postprocedure was noted to have some oozing from the right femoral site which was persistent requiring D Stat application and manual pressure. Patient was observed for sometime and patient will be placed under observation under hospitalist service. On bedside interview, patient denies any active chest pain, shortness of breath, right groin pain or any significant discomfort. Per nursing staff, patient has had no further episodes of bleeding from the right groin site after manual pressure was applied. Patient underwent a soft tissue ultrasound of the right groin which showed small area of hematoma measuring about 2.8 cm x 0.4 cm x 3.4 cm.. There was no evidence of pseudoaneurysm. We will monitor this patient closely, we will monitor H&H tonight, and if patient remains hemodynamically stable tomorrow with no evidence of increasing size of hematoma, we will anticipate discharge tomorrow. REVIEW OF SYSTEMS CONSTITUTIONAL: Denies fevers, chills, or night sweats. No unintentional weight loss reported. NEUROLOGICAL: Denies headache, amaurosis fugax, motor weakness, sensory deficit, vertigo/spinning sensation, gait abnormalities, or tremors. ENT: No hearing loss, otalgia, otorrhea, rhinitis, rhinorrhea, hoarseness, or sore throat. CARDIOVASCULAR: previous hx of chest pain PULMONARY: Denies any shortness of breath, cough, phlegm/sputum, hemoptysis, pleuritic chest pain. SLEEP: Denies morning headaches, daytime somnolence or napping. Denies difficulty falling asleep, staying asleep, waking from sleep. Denies knowledge of snoring. GASTROINTESTINAL: Denies any type of dysphagia to either liquids or solids. Denies nausea, vomiting, pyrosis, early satiety, abdominal pain, diarrhea, constipation, or changes in stool consistency or caliber. Denies coffee-ground emesis, hematemesis, hematochezia, or melanotic stools. GENITOURINARY: Denies frequency, urgency, nocturia, hematuria or incontinence (Storage/Irritative symptoms.) Low urinary stream, straining to void, urinary intermittency or hesitancy, splitting of the voiding stream, terminal dribbling. ENDOCRINOLOGIC: Denies polyuria, polydipsia, polyphagia or heat/cold intolerances. HEMATOLOGIC: Denies thrombophilia/previous clots, or coagulopathy/bleeding disorders. ONCOLOGIC: Denies personal history of malignancy. DERMATOLOGIC: Denies rashes or pruritus. PSYCHIATRIC: Denies any suicidal or homicidal ideation. Denies hallucinations. PAST MEDICAL HISTORY: History of remote CVA with residual left-sided hemiparesis treated in [place], hypertension, hyperlipidemia, type 2 diabetes mellitus, left internal carotid artery stenosis, history of cardiac catheterization in 2020 which reveals severe LAD, OM1 and RCA stenosis with EF of 55% history of multivessel coronary artery disease, history of peripheral arterial disease PAST SURGICAL HISTORY: Previous history of hysterectomy, prior history of cardiac catheterization in 2020 PAST SOCIAL HISTORY: Denies active smoking or alcohol consumption FAMILY HISTORY: Heart disease in father Allergies: Ethinyl estradiol, norgestimate Coded Allergies: ethinyl estradiol (Unverified Allergy, Unknown, 11/13/23) PATIENT STATES NOT ALLERGIC TO MEDICATION norgestimate (Unverified Adverse Reaction, Unknown, 12/09/24) PATIENT DENIES ALLERGY PHYSICAL EXAM GENERAL APPEARANCE: The patient is awake, alert, and oriented, in no acute cardiopulmonary distress. NEUROLOGICAL: Cranial nerves II-XII grossly intact. Motor is 5/5 in bilateral upper and lower extremities proximal to distal. No sensory deficits. HEENT: Face is symmetric. Pupils are equal and reactive. Extraocular movements are intact. NECK: Supple. No JVD. No thyromegaly. No submental, submandibular, pre- /postauricular, occipital or supraclavicular lymphadenopathy. CHEST: Normal chest expansion. No Telemetry. LUNGS: Absence of any rales, rhonchi or any wheezing. CARDIOVASCULAR: Regular. S1 and S2 normal. No appreciable rubs, murmurs or gallops. ABDOMEN: Soft, nontender, and nondistended. There is no rebound, voluntary guarding, or rigidity. : Deferred. No Pimentel. EXTREMITIES: Non-edematous and not cyanotic. No clubbing. Good capillary refill. SKIN: No skin breakdown. Vital Sign (Last 24 Hours) 12/11/24 12/11/24 11:00 16:00 Temp 97.5 Pulse 59 Resp 11 B/P (MAP) 135/45 Pulse Ox 97 O2 Delivery Room Air FiO2 21 LABS: Laboratory: Test 12/11/24 11:09 Range/Units Whole Blood Glucose 159 H 70-110 MG/DL Current Medications Medications (Trade) Dose Ordered Sig/Lm Route PRN Reason Start Time Stop Time Status Last Admin Dose Admin Acetaminophen (TYLenol 325MG TAB) 650 mg Q6H PRN PO MILD PAIN (1-3) 12/11/24 19:00 01/10/25 18:59 Aspirin (Aspirin 81mg Ec Tab) 81 mg DAILY PO 12/12/24 09:00 01/11/25 08:59 Atorvastatin Calcium (LIPItor 40MG) 40 mg PM PO 12/11/24 21:00 01/10/25 20:59 Clopidogrel Bisulfate (plaVIX 75MG) 75 mg DAILY PO 12/12/24 10:00 01/11/25 09:59 Dextrose (D50w) 50 ml AD PRN IV HYPOGLYCEMIA PROTOCOL 12/11/24 10:30 01/10/25 10:29 EZETIMIBE (Zetia) 10 mg DAILY PO 12/12/24 09:00 01/11/25 08:59 Famotidine (Pepcid 20mg Tab) 20 mg BID PO 12/11/24 21:00 01/10/25 20:59 Ferrous Sulfate (Ferrous Sulfate) 325 mg DAILYBKFST PO 12/12/24 08:00 01/11/25 07:59 Gabapentin (NEURontin 300 MG CAP) 300 mg TID PO 12/11/24 21:00 01/10/25 20:59 Insulin Human Regular (humuLIN R 100 UNIT/ML 3ML) INSULIN SLIDING SCAL... ACHS SQ 12/11/24 11:30 01/10/25 11:29 Ipratropium Humphrey (AtrovENT UD) 0.5 mg Q6H PRN IH SHORTNESS OF BREATH 12/11/24 19:00 01/10/25 18:59 Lisinopril (Prinivil 10mg) 10 mg AM PO 12/12/24 09:00 01/11/25 08:59 Metoprolol Tartrate (loprESSOR) 25 mg BID PO 12/11/24 21:00 01/10/25 20:59 Nifedipine (adALAT 30MG) 30 mg DAILY PO 12/12/24 09:00 01/11/25 08:59 Nitroglycerin (Nitrostat) 0.4 mg AD SL 12/11/24 18:30 01/10/25 18:29 Ondansetron HCl (zoFRAN 4MG INJ) 4 mg Q6H PRN IVP NAUSEA/VOMITING 12/11/24 19:00 01/10/25 18:59 Sodium Chloride 1,000 ml @ 0 mls/hr Q0M IV 12/11/24 06:30 01/10/25 06:29 12/11/24 06:49 20 MLS/HR Sodium Chloride 1,000 ml @ 150 mls/hr AD IV 12/11/24 10:30 12/11/24 16:29 DC DIAGNOSTICS / RADIOLOGY: SERVICE [id number] REASON: POST HEART CATH COMPLICATION ORDERING PHYSICIAN: Raymundo ANDERSON II, MD PROCEDURE: SOFT LOW E - US SOFT TISSUE LOWER EXTREMITY Right groin ULTRASOUND INDICATION: Post cardiac catheter COMPARISON: None TECHNIQUE: Multiplanar sonographic images of the right groin were obtained earlier in real-time using grayscale and color Doppler technique, and subsequently made available for review. FINDINGS/IMPRESSION: Study demonstrates a complex fluid collection without flow suggesting of a hematoma measuring 2.8 x 0.4 x 3.4 cm. DICTATED BY: JONNIE VEGA MD DATE: 12/11/241644 ELECTRONICALLY SIGNED BY: JONNIE VEGA MD DATE: 12/11/241649 ASSESSMENT: Status post coronary angiogram with successful complex PCI and stenting of distal right coronary artery by Dr. Calixto, 12/11/2024 Status post IVUS of the LAD with balloon angioplasty of mid, distal and left anterior descending and shockwave lithotripsy of the mid distal and ostial proximal LAD, by Dr. Anderson, 12/11/2024 Recent history of unstable angina, POA Small right groin hematoma post cardiac catheterization Left internal carotid artery stenosis, 80%, POA History of hypertension, POA Anemia, mild, POA Hyperlipidemia, POA History of CVA with residual left-sided weakness, POA Type 2 diabetes mellitus, POA History of diabetic neuropathy, POA History of PAD, POA PLAN: Patient will be placed under observation in medical-surgical floor under telemetry monitoring We will monitor right groin site closely, ultrasound of the right groin shows about 3 cm x 3 cm hematoma, no pseudoaneurysm noted, currently no active noted on bedside examination We will repeat a groin ultrasound tomorrow, if hematoma remains stable in size, continue with dual antiplatelet therapy with aspirin and Plavix post PCI Continue with antihypertensives including Nifedipine ER 30 mg daily, lisinopril 10 mg daily, metoprolol tartrate 25 mg b.i.d., continue with statin medication including atorvastatin 40 mg at bedtime Continue with gabapentin 300 mg t.i.d. If patient remains clinically stable tomorrow, plan to discharge patient, we will have Cardiology follow up We will monitor H&H tonight, all labs will be repeated in the morning, we will transfuse to maintain hemoglobin greater than eight Date of service: 12/11/2024 Plan of care was discussed with patient and daughter, patient verbalized understanding Kyle Teixeira MD Advanced Care Planning: Which of the following were discussed: Hospice care: Yes __ No _X_ Therapeutic options: Yes _X_ No __ Advance directives: Yes _X_ No __ Other discussions: Discussed with who?: Patient Voluntary nature of this service was explained to the patient? Yes _x_ No __ Amount of time spent: 20 minutes KYLE TEIXEIRA MD Dec 11, 2024 20:36
--- NOTE | 2024-12-11 21:10 | NUR ---
re: report REPORT GIVEN VIA PHONE TO KALE RIBEIRO USING SBAR. ALL QUESTIONS/CONCERNS ADDRESSED.
--- NOTE | 2024-12-11 21:30 | NUR ---
RE: PATIENT TRANSFERRED PATIENT TAKEN TO ROOM 319 VIA BED BY NURSE. PATIENT DAUGHTER AT BEDSIDE. DSTAT TO RIGHT GROIN DRY/INTACT.
[2024-12-11] MEDS: GABAPENTIN 300 MG CAPSULE PO SCH (22:27)
[2024-12-11] MEDS: FAMOTIDINE 20MG TAB PO SCH (22:27)
[2024-12-12] VITALS: BP 147/62; PULSE 59; RESP 18; TEMP 98.1
[2024-12-12 04:00] VITALS: BP 146/51; PULSE 60; RESP 18; TEMP 98.3
[2024-12-12 06:25] LABS: IMMATURE GRANULOCYTE ABSOLUTE 0.02 K/uL (0-1); NUCLEATED RED BLOOD CELLS 0.0 % (0.0-0.19); PLATELET COUNT (AUTO) 216 K/uL (130-400); RED BLOOD CELL COUNT(AUTO) 3.86 MIL/uL (4.00-5.50); RED CELL DISTRIBUTION WIDTH 12.7 % (11.0-15.5); WHITE BLOOD COUNT (AUTO) 6.0 K/uL (4.8-10.8)
[2024-12-12 06:32] VITALS: PULSE 60; RESP 17; O2SAT 98
[2024-12-12 06:43] LABS: CREATININE 0.7 mg/dL (0.5-1.0); GLOMERULAR FILTR. RATE CALC 94.0 mL/min (>90); GLUCOSE,RANDOM 169.0 mg/dL (70-105); SODIUM SERUM 139.0 mmol/L (136-145); UREA NITROGEN, BLOOD 17.0 mg/dL (7-18)
[2024-12-12 08:00] VITALS: BP 133/72; PULSE 63; RESP 20; TEMP 98
--- NOTE | 2024-12-12 08:20 | HMCIMG ---
EXAM: US Right groin Nonvascular Soft Tissue Ultrasound. CLINICAL HISTORY: Assess if the right groin hematoma is stable in size TECHNIQUE: Real-time ultrasound scan of the right groin with image documentation. COMPARISON: US dated 12/12/2024. FINDINGS: SOFT TISSUES: Interval reduction in the size of the hematoma in the right groin. It now measures 1 x 1 x 1.9 cm. No internal vascularity. Right inguinal lymph node measuring 2.2 x 1 x 1.1 cm. IMPRESSION: Interval reduction in the size of the hematoma in the right groin. It now measures 1 x 1 x 1.9 cm. Right inguinal lymph node measuring 2.2 x 1 x 1.1 cm. /Ousmane
[2024-12-12] MEDS: LISINOPRIL 10 MG TABLET PO SCH (08:35)
[2024-12-12] MEDS: ASPIRIN 81 MG EC TAB PO SCH (08:35)
[2024-12-12] MEDS: FERROUS SULFATE 325 MG TABLET.DR PO SCH (08:35)
[2024-12-12] MEDS: EZETIMIBE 10 MG TAB PO SCH (08:36)
[2024-12-12] MEDS: MAGNESIUM 2GM PREMIX 50ML 50 ML IV SCH (10:45)
--- NOTE | 2024-12-12 11:00 | NUR ---
MET W PATIENT AT BEDSIDE FOR DC PLANNING. PATIENT LIVES WITH SON AND MOTHER; IS INDEPENDENT IN ADL'S BUT DOES HAVE A PROVIDER ' ABOUT 20 HRS' DOESNOT DRIVE. HOME SAFE AND ACCESSIBLE, HAS CANE WALKER, ROLLING WALKER AND WHEELCHAIR, BETWEEN HERSELF AND HER MOM.D STATES DOES HAVE SOME FINANCIAL STRAIN . WILL REFER TO [employer]. VERBALIZED AGREEMENT TO THAT [facility] IS HOME, DAUGHTER WILL PROVIDE TRANSPORT Addendum: 12/12/24 at 1956 by STONE JUNG RN CM Amended: Links added.
[2024-12-12 12:00] VITALS: BP 123/73; PULSE 58; RESP 20; TEMP 97.4
--- NOTE | 2024-12-12 12:38 | DS ---
Discharge Summary Hospital Course Summary: 69-year-old female who was admitted after undergoing left heart catheterization of the right groin site. Post procedure she developed a hematoma that was approximately2 cm x 3 cm. It was reimaged in the next day was about one 0.9 x 2 cm or smaller. On the day of discharge patient had no complaints of chest pain or shortness for breath, no nausea or vomiting or diarrhea. She was ambulating and able to use the restroom with some assistance. Physical examination revealed a well-developed well-nourished older female in no acute distress very pleasant. HEENT PERRLA, EOMI Lungs are clear to auscultation bilaterally Cardiovascular S1-S2 without murmur heart sounds are somewhat distant Abdomen is soft benign Right groin site clean and dry there is no active bleeding I did not remove the Telfa pad there is no erythema or any new discharge just old clotted blood scant amount. Extremities without clubbing cyanosis or edema Neurologically moving all four extremities [employer]otive Glass Technician(s): Cardiology Dr. Salina Bledsoe Procedure(s): Left heart catheterization with stenting, ballooning, lithotripsy. Assessment/Plan: ASSESSMENT: Status post coronary angiogram with successful complex PCI and stenting of distal right coronary artery by Dr. Calixto, 12/11/2024 Status post IVUS of the LAD with balloon angioplasty of mid, distal and left anterior descending and shockwave lithotripsy of the mid distal and ostial proximal LAD, by Dr. Bledsoe, 12/11/2024 Recent history of unstable angina, POA Small right groin hematoma post cardiac catheterization Left internal carotid artery stenosis, 80%, POA History of hypertension, POA Anemia, mild, POA Hyperlipidemia, POA History of CVA with residual left-sided weakness, POA Type 2 diabetes mellitus, POA History of diabetic neuropathy, POA History of PAD, POA Follow up with Cardiology within one week Follow up primary care physician within 1-2 weeks. Discharge Instructions: See med list Home Medications: Active Scripts Nifedipine (Nifedipine ER) 30 Mg Tab.er.24, 1 TAB PO DAILY for 30 Days, #30 TAB 1 [facility] Reported Medications Aspirin (Adult Low Dose Aspirin EC) 81 Mg Tablet.dr, 1 TAB PO DAILY for 30 Days, #30 TAB 0 Refills 12/11/24 Atorvastatin Calcium (LIPITOR) 40 Mg Tablet, 40 MG PO PM, TAB 12/09/24 Lisinopril (Lisinopril) 10 Mg Tablet, 10 MG PO AM, TAB 12/09/24 Meloxicam (Meloxicam) 7.5 Mg Tablet, 7.5 MG PO AM, TAB 12/09/24 Metformin HCl (Metformin HCl) 1,000 Mg Tablet, 1 TAB PO BID 07/27/24 Nitroglycerin (Nitroglycerin) 0.4 Mg Tab.subl, 1 TAB PO AD 07/27/24 Ferrous Sulfate (Ferrous Sulfate) 325 Mg (65 Mg Iron) Ectab, 1 TAB PO DAILY for 30 Days, #30 TAB 0 Refills 07/27/24 Ezetimibe (Ezetimibe) 10 Mg Tablet, 1 TAB PO DAILY 07/27/24 Metoprolol Tartrate (Metoprolol Tartrate) 25 Mg Tablet, 1 TAB PO BID for 30 Days, #60 TAB 0 Refills 07/27/24 Clopidogrel Bisulfate (Clopidogrel) 75 Mg Tablet, 1 TAB PO DAILY 07/27/24 Gabapentin (Neurontin) 300 Mg Capsule, 1 CAP PO TID 07/27/24 Discontinued Reported Medications Atorvastatin Calcium (Atorvastatin Calcium) 80 Mg Tablet, 1 TAB PO HS 07/27/24 Simethicone (Simethicone) 80 Mg Tab.chew, 1 TAB PO TID for gas for 6 Days, #20 TAB 0 Refills 07/27/24 Aspirin (Ecotrin) 325 Mg Tablet.dr, 325 MG PO DAILY, TAB 07/27/24 Lisinopril (Lisinopril) 20 Mg Tablet, 1 TAB PO DAILY 07/27/24 Discontinued Scripts [Folic Acid/Vitamin B Comp W-C] 1 CAP TAB No Conflict Check, 1 CAP PO DAILY for 30 Days, #30 TAB 0 Refills Prov:CATHY RUIZOR N [employer] 07/31/24 Nifedipine (Nifedipine ER) 30 Mg Tab.er.24, 30 MG PO DAILY for 30 Days, #30 TAB Prov:CATHYMARYANNE N [employer]ING [employer] 07/31/24 Aspirin (ASPIRIN 81 MG ECTAB) 81 Mg Ectab, 81 MG PO DAILY for 30 Days, #30 TAB.EC Prov:CATHY MAYEROR N [employer] VENDING [employer]IVER 07/31/24 Clonidine HCl (Clonidine HCl) 0.1 Mg Tablet, 1 TAB PO HS PRN for IF SBP GREATER THAN 170 for 30 Days, #30 TAB 0 Refills Prov:MERT KHOURY AGACNP 07/30/24 Time spent arranging discharge: 31-60 minutes XOCHITL JERONIMO MD Dec 12, 2024 12:38
--- NOTE | 2024-12-12 15:42 | NUR ---
DISCHARGE PT GO DISCHARGE ORDERS, REMOVED IV, EDUCATION GIVEN. LEFT FACILITY IN STABLE CONDITION VIA PRIVATE CAR WITH A FAMILY MEMBER
== END 2024-12-12 15:42 | disposition home or self-care (01) ==
LOC: DAH 06:03 → DAHIP 06:04 → 3CH 21:35
PROVIDERS: ADMIT Internal Medicine; ATTEND Internal Medicine
DX: I25.119 Atherosclerotic heart disease of native coronary artery with unspecified angina pectoris (principal); I10 Essential (primary) hypertension; E78.5 Hyperlipidemia, unspecified; E11.40 Type 2 diabetes mellitus with diabetic neuropathy, unspecified; D64.9 Anemia, unspecified; I65.22 Occlusion and stenosis of left carotid artery; E11.51 Type 2 diabetes mellitus with diabetic peripheral angiopathy without gangrene; Z90.710 Acquired absence of both cervix and uterus; Z79.899 Other long term (current) drug therapy; Z98.890 Other specified postprocedural states
CPT/HCPCS: 80048 ×2; 83880; 85025 ×2; 85610; 85730; 81001; 36415 ×3; 71045; 93005; 36223; 36225; 92978; 92972; 93458; 99156; 99157 ×6; 96361; 85347 ×4; 85014; 85018; 86850; 86900; 86901; 82948 ×5; 76882 ×2; 94664; 96365; 96366; 83735; C1769; C1887 ×3; C1894 ×2; C1725 ×5; C1760; C1761; C1753; Q9965 ×2; C1874; G0378 ×24; J3010; J3490 ×3; J7030; J1644 ×4; J2250 ×3; Q9967; A4215; A4223 ×3; A4554; A4335; A4222; A4221; A4663; A4216; A4606; C9600; J3475; 92920; 96360; J0461